=== PATIENT | male | born 1975 | race Caucasian/White ===

== ENCOUNTER 2024-11-08 09:54 | Outpatient (REF) | payer MEDICAID, SELFPAY ==
--- OUTSIDE RECORDS SUMMARY | 2024-11-08 11:38 | XMS_ITS | Encounter Summary ---
Author Organization [employer] Address [address] [facility] 7t [place] [address] Care Team Providers Care Licensed Marriage And Family Therapist Name Role Phone Jose Angel Cross MD Primary Care Prov ider Reason for Visit * Reason Comments Pre-visit Planning SDOH negative, Tobac co screening negative. Encounter Details Date Type Department Care Team ([facility] st Contact Info) Description 11/01/2024 Patient Outreach [facility] [address], [place] [phone] Jose Angel Cross MD [address] [place], [place] [phone] Pre-visit Planning (SDOH negative, Tobacco screening negative.) Social History Tobacco Use Types Packs/Day Years Used Date Smoking Tobacco: Never Smokeless Tobacco: Never Alcohol Use Standard Drinks/Week Comments Yes 0 (1 standard drink = 0.6 oz pur e alcohol) beer 1-2 times a year Depression Answer Date Recorded Patient Health Questionnaire-9 Score 0 07/25/2024 Patient Health Questionnaire-9 Score 0 07/25/2024 Last PHQ-9: Questionnaire Data Not on file 1 Housing Stability Answer Date Recorded What is your housing situation today? I have madeline baer 07/25/[address] you li ve. Do you have problems with any of the following? None of the above 07/25/2024 Food Insecurity Answer Date Recorded Within the past 12 months, y ou worried that your food would run out before you got money to buy more: Never True 07/25/2024 Within the past 12 months,th e food you bought just didn't last and you didn't have enough money to get more: Never True Transportation Answer Date Recorded In the past 12 months, has l ack of transportation kept you from medical appts, meetings, work or from getting things needed for daily living? No 07/25/2024 Utilities Answer Date Recorded In the past 12 months, has t he electric, gas, oil or water company threatened to shut off services in your home? No 07/25/2024 Depression Answer Date Recorded Patient Health Questionnaire-2 Score 0 07/25/2024 Internet Access Answer Date Recorded Internet Access Q1 Yes 07/25/2024 Internet Access Q2 Not on file 07/25/2024 Sex and Gender Information Value Date Recorded Sex Assigned at Male 07/20/2024 10:34 AM EDT Legal Sex Male 2:39 PM EDT Gender Identity Male 07/25/2024 8:43 AM EDT Sexual Orientation Straight 07/25/2024 8: 43 AM EDT documented as of this encounter Progress Notes * Sharri Hensley - 11/01/2024 11:24 AM EST CC Sharri Santillan placed successful outbound call to patient for pre-visit planning. Patient name and confirmed. Patient confirms appt date and time, and has transportation arrangements. Biggest concern for appointment at this time is no concerns. Appropriate screenings completed in anticipation ofappointment. documented in this encounter Plan of Treatment Not on file documented as of this encounter Visit Diagnoses Not on filedocumented in this encounter Additional Health Concerns Assessment Noted Time PHQ-9 Depression Total Score: 0 07/25/20 9:41 AM EDT documented as of this encounter Care Teams Licensed Marriage And Family Therapist Relationship Specialty Start Date End Date Jose Angel Cross MD [address] [place] [phone] PCP - General Internal Medicine 07/25/24 documented as of this encounter
--- OUTSIDE RECORDS SUMMARY | 2024-11-08 11:38 | XMS_ITS | Encounter Summary ---
Author Organization [employer] Address [address] [facility] 7t [place] [address] Care Team Providers Care Manager Filter Name Role Phone Jose Angel Cross MD Primary Care Prov ider Encounter Details Date Type Department Care Team (Late st Contact Info) Description 07/27/2024 Orders Only [facility]S [address] [place], [place] [phone] Jose Angel Cross MD [address] [place] [address] Social History Tobacco Use Types Packs/Day Years [...] AM EDT documented as of this encounter Plan of Treatment Not on file documented as of this encounter Visit Diagnoses Not on filedocumented in this encounter Additional Health Concerns Assessment Noted Time PHQ-9 Depression Total Score: 0 07/25/20 9:41 AM EDT documented as of this encounter Care Teams Manager Filter Relationship Specialty Start Date End Date Jose Angel Cross MD [address] [place] [id number] PCP - General Internal Medicine 07/25/24 documented as of this encounter
--- OUTSIDE RECORDS SUMMARY | 2024-11-08 11:38 | XMS_ITS | Encounter Summary ---
Author Organization [employer] Address [address] [facility] 7 [place] [address] Care Team Providers Care Doughnut Fryer Name Role Phone Jose Angel Cross MD Primary Care Prov ider Reason for Visit * Reason Onset Date Comments new patient visit 07/20/2024 Encounter Details Date Type Department Care Team (Late st Contact Info) Description 07/20/2024 Telephone [facility] [address] [place] [address] Jose Angel Cross MD [address] [place], [place] [phone] new patient visit Social History Tobacco Use Types Packs/Day Years Used Date Smoking Tobacco: Never Assessed Sex and Gender Information Value Date Recorded Sex Assigned at Male 07/20/2024 10:34 AM EDT Legal Sex Male 2:39 PM EDT Gender Identity Male 07/25/2024 8:43 AM EDT Sexual Orientation Straight 07/25/2024 8: 43 AM EDT documented as of this encounter Miscellaneous Notes * Telephone Encounter - Jabier Serrano - 07/20/2024 10:37 AM EDT TC placed to patient for scheduling of new patient visit. Agreed to 07/[address] Wren Medical Conditions: Sleep apnea ( has a cpap machine ) Apptmnt reminder and release form sent via mail . documented in this encounter Plan of Treatment Not on file documented as of this encounter Visit Diagnoses Not on filedocumented in this encounter Care Teams Doughnut Fryer Relationship Specialty Start Date End Date Jose Angel Cross MD [address] [place], [place] [phone] PCP - General Internal Medicine 07/25/24 documented as of this encounter
--- OUTSIDE RECORDS SUMMARY | 2024-11-08 11:38 | XMS_ITS | Encounter Summary ---
Author Organization [employer] Address [address] [facility] 7t [place] [address] Care Team Providers Care Tub Tender Name Role Phone Jose Angel Cross MD Primary Care Prov ider Reason for Referral * Consultation (Routine) - Pending Review Specialty Diagnoses / Procedures Referred By Contace t Referred To Contact Gastroenterology Diagnoses Screening for colon cancer Jose Angel Cross MD [address] [place] [address] Phone: tel: fax: Referral ID Status Reason Start Date Expiration Date Visits Requested Visits Authorized [id number] Pending Review Specialty Services Required 11/08/2024 11/08/2025 1 1 Encounter Details Date Type Department Care Team (Late st Contact Info) Description 11/08/2024 9:15 AM EST Office Visit [facility] [address] [place] [address] Jose Angel Cross MD [address] [place] [address] Class 3 severe obesity due to excess calories with serious comorbidity and body mass index (BMI) of 40.0 to 44.9 in adult (CMS/HCC) (Primary Dx); Dietary counseling; Exercise counseling; ALPHONSE (obstructive sleep apnea); Intrinsic eczema; Screening for colon cancer; Flu vaccine refused Social History Tobacco Use Types Packs/Day Years [...] AM EDT documented as of this encounter Last Filed Vital Signs Vital Sign Reading Time Taken Comments Blood Pressure 132/84 11/08/2024 9:31 AM EST Pulse 92 11/08/2024 9:31 AM EST Temperature 36.6 ??C (97.8 ??F) 11/08/2024 9:31 AM ES T Respiratory Rate 20 11/08/2024 9:31 AM EST Oxygen Saturation - - Inhaled Oxygen Concentration - - Weight 127 kg (279 lb) 11/08/2024 9:31 AM EST Height 172.7 cm (5' 8 ) 11/08/2024 9:31 AM EST Body Mass Index 42.42 11/08/2024 9:31 AM EST documented in this encounter Progress Notes * Jose Angel Baker MD - 11/08/2024 9:15 AM EST Subjective Patient ID: Nikolas Willett is a 49 y.o. male who presents for No chief complaint on file.. HPI Patient was seen in office for a physical examination Review of Systems Constitutional: Negative for chills, fatigue and fever. Respiratory: Negative for cough and shortness of breath. Cardiovascular: Negative for chest pain and palpitations. Gastrointestinal: Negative for abdominal distention, anal bleeding, blood in stool and constipation. Genitourinary: Negative for dysuria, frequency, penile discharge and penile pain. Musculoskeletal: Positive for arthralgias. Negative for joint swelling and myalgias. Objective Physical Exam Constitutional: Appearance: Normal appearance. HENT: Right Ear: Tympanic membrane, ear canal and external ear normal. There is no impacted cerumen. Left Ear: Tympanic membrane, ear canal and external ear normal. There is no impacted cerumen. Cardiovascular: Rate and Rhythm: Normal rate and regular rhythm. Heart sounds: No murmur heard. Pulmonary: Effort: Pulmonary effort is normal. No respiratory distress. Breath sounds: No stridor. No wheezing or rhonchi. Abdominal: General: Abdomen is flat. There is no distension. Palpations: There is no mass. Tenderness: There is no abdominal tenderness. There is no guarding or rebound. Hernia: No hernia is present. Musculoskeletal: General: No swelling or tenderness. Normal range of motion. Cervical back: Normal range of motion. No rigidity or tenderness. Lymphadenopathy: Cervical: No cervical adenopathy. Skin: General: Skin is warm. Coloration: Skin is not jaundiced or pale. Neurological: General: No focal deficit present. Mental Status: He is alert and oriented to person, place, and time. Psychiatric: Mood and Affect: Mood normal. Behavior: Behavior normal. Assessment/Plan Problem List Items Addressed This Visit ALPHONSE (obstructive sleep apnea) Patient with sleep apnea machine, needs adjustment will contact dealer for adjustment Class 3 severe obesity due to excess calories with serious comorbidity and body mass index (BMI) of40.0 to 44.9 in adult ([facility]) - Primary Encouraged to exercise 15 min every other day, eat smaller meal with calorie intake from 1500 to 2000 calorie daily, octaviano discuss if he is interested in medical treatment aid for weight loss Relevant Orders CBC auto differential Comprehensive Metabolic Panel Lipid Panel, Standard TSH W/Reflex to FT4 HIV-1/2 Antigen and Antibodies, Fourth Generation, with Reflexes Hepatitis C Antibody with Reflex to HCV, RNA, Quantitative, Real-Time PCR Hemoglobin A1c Intrinsic eczema Will provide triamcinolone Screening for colon cancer Will refer for screening colonoscopy Relevant Orders Referral to Gastroenterology Other Visit Diagnoses Dietary counseling Exercise counseling Flu vaccine refused documented in this encounter Miscellaneous Notes * Assessment & Plan Note - Jose Angel Baker MD - 11/08/2024 9:54 AM ESTAssociated Problem(s): Screening for colon cancer Will refer for screening colonoscopy * Assessment & Plan Note - Jose Angel Baker MD - 11/08/2024 9:53 AM ESTAssociated Problem(s): Intrinsic eczema Will provide triamcinolone * Assessment & Plan Note - Jose Angel Baker MD - 11/08/2024 9:53 AM ESTAssociated Problem(s): Class 3 severe obesity due to excess calories with serious comorbidity and body mass index (BMI) of 40.0 to 44.9 in adult (CMS/HCC) Encouraged to exercise 15 min every other day, eat smaller meal with calorie intake from 1500 to 2000 calorie daily, octaviano discuss if he is interested in medical treatment aid for weight loss * Assessment & Plan Note - Jose Angel Baker MD - 11/08/2024 9:51 AM ESTAssociated Problem(s): ALPHONSE (obstructive sleep apnea) Patient with sleep apnea machine, needs adjustment will contact dealer for adjustment documented in this encounter Plan of Treatment Scheduled Orders Name Type Priority Associated Diagnoses Orde r Schedule CBC auto differential Lab Routine Class 3 severe obesity due to excess calories with serious comorbidity and body mass index (BMI) of 40.0 to 44.9 in adult ([facility]) Expected: 11/08/2024 (Approximate), Expires: 11/08/2025 Comprehensive Metabolic Panel Lab Routine Class 3 severe obesity due to excess calories with serious comorbidity and body mass index (BMI) of 40.0 to 44.9 in adult ([facility]) Expected: 11/08/2024 (Approximate), Expires: 11/08/2025 Lipid Panel, Standard Lab Routine Class 3 severe obesity due to excess calories with serious comorbidity and body mass index (BMI) of 40.0 to 44.9 in adult ([facility]) Expected: 11/08/2024 (Approximate), Expires: 11/08/2025 TSH W/Reflex to FT4 Lab Routine Class 3 severe obesity due to excess calories with serious comorbidity and body mass index (BMI) of 40.0 to 44.9 in adult ([facility]) Expected: 11/08/2024 (Approximate), Expires: 11/08/2025 HIV-1/2 Antigen and Antibodies, Fourth Generation, with Reflexes Lab Routine Class 3 severe obesity due to excess calories with serious comorbidity and body mass index (BMI) of 40.0 to 44.9 in adult ([facility]) Expected: 11/08/2024 (Approximate), Expires: 11/08/2025 Hepatitis C Antibody with Reflex to HCV, RNA, Quantitative, Real-Time PCR Lab Routine Class 3 severe obesity due to excess calories with serious comorbidity and body mass index (BMI) of 40.0 to 44.9 in adult ([facility]) Expected: 11/08/2024, Expires: 11/08/2025 Hemoglobin A1c Lab Routine Class 3 severe obesity due to excess calories with serious comorbidity and body mass index (BMI) of 40.0 to 44.9 in adult ([facility]) Expected: 11/08/2024 (Approximate), Expires: 11/08/2025 Scheduled Referrals Name Type Priority Associated Diagnoses Order Schedule Referral to Gastroenterology Outpatient Referral Routine Screening for colon cancer Expected: 11/08/2024 (Approximate), Expires: 11/08/2025 documented as of this encounter Visit Diagnoses Diagnosis Class 3 severe obesity due to excess calories with serious comorbidity and body mass index (BMI) of 40.0 to 44.9 in adult ([facility])- Primary Dietary counseling Dietary surveillance and counseling Exercise counseling ALPHONSE (obstructive sleep apnea) Obstructive sleep apnea (adult) (pediatric) Intrinsic eczema Screening for colon cancer Special screening for malignant neoplasms, colon Flu vaccine refused documented in this encounter Additional Health Concerns Assessment Noted Time PHQ-9 Depression Total Score: 0 07/25/20 9:41 AM EDT documented as of this encounter Care Teams Tub Tender Relationship Specialty Start Date End Date Jose Angel Cross MD [address] [place] [id number] PCP - General Internal Medicine 07/25/24 documented as of this encounter
--- OUTSIDE RECORDS SUMMARY | 2024-11-08 11:38 | XMS_ITS | Encounter Summary ---
Author Organization [employer] Address [address] [facility] 7t [place] [address] Care Team Providers Care Proposal Rep Name Role Phone Jose Angel Cross MD Primary Care Prov ider Reason for Visit * Reason Onset Date Comments Chart Prep 11/07/2024 Encounter Details Date Type Department Care Team ([facility] st Contact Info) Description 11/07/2024 Telephone [facility] [address] [place] [address] Jose Angel Cross MD [address] [place] [address] Chart Prep Social History Tobacco Use Types Packs/Day Years [...] encounter Miscellaneous Notes * Telephone Encounter - Leisa Connolly [place] - 11/07/2024 3:56 PM EST Chart Prep Labs: not applicable Images: not applicable Vaccines due: yes Referrals: n/a Screenings: colonoscopy , STI screening Overdue care gaps: disability screening documented in this encounter Plan of Treatment Not on file documented as of this encounter Visit Diagnoses Not on filedocumented in this encounter Additional Health Concerns Assessment Noted Time PHQ-9 Depression Total Score: 0 07/25/20 9:41 AM EDT documented as of this encounter Care Teams Proposal Rep Relationship Specialty Start Date End Date Jose Angel Cross MD [address] [place] [phone] PCP - General Internal Medicine 07/25/24 documented as of this encounter
--- OUTSIDE RECORDS SUMMARY | 2024-11-08 11:38 | XMS_ITS | Encounter Summary ---
Author Organization [employer] Address [address] [facility] [address] 7[address] [place] [address] Care Team Providers Care Bale Coverer Name Role Phone Jose Angel Cross MD Primary Care Prov ider Encounter Details Date Type Department Care Team (Latest Contact Info) Description 11/08/2024 Travel Social History Tobacco Use Types Packs/Day Years [...] documented as of this encounter Care Teams Bale Coverer Relationship Specialty Start Date End Date Jose Angel Cross MD [address] [place] [id number] PCP - General Internal Medicine 07/25/24 documented as of this encounter
--- OUTSIDE RECORDS SUMMARY | 2024-11-08 11:38 | XMS_ITS | Clinical Summary ---
Author Organization [facility] Address [address] [place] [address] Care Team Providers Care Staff Weapons Officer Name Role Phone Beverly Tyson PA-C Primary Care Provider [phone] Source Comments PLEASE NOTE, if this patient is a minor, it may be UNLAWFUL to discuss sensitive information that is contained in these records (such as FAMILY PLANNING, MENTAL HEALTH or SUBSTANCE ABUSE) with the minor patient's parent or other person without the patient's specific authorization.[facility] Allergies No known active allergies Medications sodium chloride (SEA SOFT NASAL MIST) 0.65 % nasal sprayIndications :Congestion of nasal sinus Place 1 Lyons into the nostril(s) as needed for congestion. 60 mL 0 01/30/2016 Active Active Problems Problem Noted Date Diagnosed Date Encounter for vasectomy counseling 05/24/2015 Overview (02/06/2016): Images from the original note were not included. Had this 09/13/[address] Dugan He did and i requested for notes to be faxed. ? Previous Messages ?? ----- Message ----- ? From: AKIRA Reynolds ? Sent: 01/27/2016 ?? 5:19 PM ? To: William Bruce uro ref to vasectomy 07/19 did he have this done? Ref to uro BMI 40.0-44.9, adult ([facility]) 05/24/2015 Overview (05/24/2015): Ref yo connell, Lab Results Component Value Date TRIGLYC 92 05/07/2015 CHOL 151 05/07/2015 HDL 36* 05/07/2015 LDL 97 05/07/2015 Kidney stone Overview (05/01/2015): has #3; he passes the stones. last occurred, one month ago Lumbago Overview (01/30/2016): onset x many yr. No trauma. heavy lifting in past with work Immunizations Name Administration Dates Next Due Hep B, Adult/Adol (ENERGIX/RECOMBIVAX) 6,06/24/2015,05/24/2015 PPD 12/02/2015 TDAP 06/24/2015 Family History Medical History Relation Name Comments Heart Problems Father tob/[place] 57 Hypertension Father tob/[place] 57 Kidney disease Father tob/[place] 57 aug 2015 - kidney failure Stroke Father tob/[place] 57 Alcohol/Drug Abuse Maternal Grandfather tobacco hvy Kidney disease Maternal Grandfather tobacco hvy Stroke Maternal Grandmother Hypertension Mother thyroid Relation Name Status Comments Brother well. has #2 Alive Father tob/[place] 57 Maternal Grandfather tobacco hvy Maternal Grandmother Mother thyroid Alive Paternal Grandfather pulmonary isue and some Paternal Grandmother hvy tob- lung issue Sister none Alive Social History Tobacco Use Types Packs/Day Years Used Date Smoking Tobacco: Never Smokeless Tobacco: Never Alcohol Use Standard Drinks/Week Comments Yes 0 (1 standard drink = 0.6 oz pur e alcohol) one -2 beers monthly Social Connections Answer Date Recorded Social Connections and Isolation 0 05/15/2019 Financial Resource Strain Answer Date R ecorded Financial Resource Strain 0 2018 Stress Answer Date Recorded Stress 0 05/15/2019 Physical Activity Answer Date Recorded Physical Activity 0 05/15/2019 Food Insecurity Answer Date Recorded Food 0 05/15/2019 Transportation Needs Answer Date Record ed Transportation 0 05/15/2019 Housing Stability Answer Date Recorded Housing 0 05/15/2019 Safety and Environment Answer Date Kaushal rded Safety 0 05/15/2019 Utilities Answer Date Recorded Utilities 0 05/15/2019 Employment Answer Date Recorded Employment 0 05/15/2019 Sex and Gender Information Value Date Recorded Sex Assigned at Not on file Legal Sex Male 11:55 AM PDT Gender Identity Not on file Sexual Orientation Not on file 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 Not on file Not on file Last Filed Vital Signs Vital Sign Reading Time Taken Comments Blood Pressure 120/78 01/30/2016 2:45 PM EDT Pulse 72 01/30/2016 2:45 PM EDT Temperature 36.7 ??C (98.1 ??F) 01/30/2016 2:45 PM ED T Respiratory Rate 16 01/30/2016 2:45 PM EDT Oxygen Saturation - - Inhaled Oxygen Concentration - - Weight 124.3 kg (274 lb) 01/30/2016 2:45 PM EDT Height 172.7 cm (5' 8 ) 05/24/2015 11:16 AM EDT Body Mass Index 41.66 05/24/2015 11:16 AM EDT Plan of Treatment Not on file Insurance [employer] Care Teams Staff Weapons Officer Relationship Specialty Start Date End Date Beverly Tyson PA-C [address] [place] [address] PCP - General 11/22/18
--- OUTSIDE RECORDS SUMMARY | 2024-11-08 11:38 | XMS_ITS | Clinical Summary ---
Author Organization [employer] Address [address] [place] [address] Care Team Providers Care Mixing Place Supervisor Name Role Phone Jose Angel Cross MD Primary Care Prov ider Allergies No known active allergies Medications triamcinolone (Kenalog) 0.1 % cream Apply topically if needed in the morning and at bedtime (pain and swelling). 30 g 5 Active Active Problems Problem Noted Date Diagnosed Date Class 3 severe obesity due t o excess calories with serious comorbidity and body mass index (BMI) of 40.0 to 44.9 in adult 11/08/2024 Assessment & Plan (11/08/2024 9:53 AM EST): Encouraged to exercise 15 min every other day, eat smaller meal with calorie intake from 1500 to 2000 calorie daily, octaviano discuss if he is interested in medical treatment aid for weight loss Intrinsic eczema 11/08/2024 Assessment & Plan (11/08/2024 9:53 AM EST): Will provide triamcinolone Screening for colon cancer 11/08/2024 Assessment & Plan (11/08/2024 9:54 AM EST): Will refer for screening colonoscopy Encounter for medical examination to establish c are 07/25/2024 Assessment & Plan (07/25/2024 12:17 PM EDT): Not seen by a pcp in over 6 months No hx of hospitalization No recent er visit Pmhx back pain/alphonse Pshx- All:- Meds: ibuprofen PRN ALPHONSE (obstructive sleep apnea) 07/25/2024 Assessment & Plan (11/08/2024 9:51 AM EST): Patient with sleep apnea machine, needs adjustment will contact dealer for adjustment Assessment & Plan (07/25/2024 12:18 PM EDT): Patient has sleep apnea, on cpap machine, follow up PRN Chronic bilateral low back pain without sciatica 07/25/2024 Assessment & Plan (07/25/2024 12:19 PM EDT): On ibuprofen as needed, avoid heavy lifting, rest when injured and apply cold pads as needed Encounters Date Type Department Care Team Description 11/08/2024 9:15 AM EST Office Visit [facility] [address] [place] [address] Jose Angel Cross MD Class 3 severe obesity due to excess calories with serious comorbidity and body mass index (BMI) of 40.0 to 44.9 in adult ([facility]) (Primary Dx); Dietary counseling; Exercise counseling; ALPHONSE (obstructive sleep apnea); Intrinsic eczema; Screening for colon cancer; Flu vaccine refused 11/08/2024 Travel 11/07/2024 Telephone [facility] [address] [place] [address] Jose Angel Cross MD Chart Prep 11/01/2024 Patient Outreach [facility] [address] [place] [address] Jose Angel Cross MD Pre-visit Planning (SDOH negative, Tobacco screening negative.) from Last 3 Months Immunizations Name Administration Dates Next Due Hep B, adult 11/25/2015,06/24/2015,05/24/2015 PPD Test 12/02/2015 Tdap 06/24/2015 Family History Medical History Relation Name Comments Sleep apnea Father No Known Problems Mother Cancer Neg Hx Relation Name Status Comments Father Mother Social History Tobacco Use Types Packs/Day Years Used Date Smoking Tobacco: Never Smokeless Tobacco: Never Tobacco Cessation:Counseling Given: Not Answered Alcohol Use Standard Drinks/Week Comments Yes 0 [...] Orientation Straight 07/25/2024 8: 43 AM EDT Last Filed Vital Signs Vital Sign Reading [...] Mass Index 42.42 11/08/2024 9:31 AM EST Plan of Treatment Health Maintenance Due Date Last Done Comments CT Colonography 1977 Colonoscopy 1977 Colorectal Cancer Screening 1977 FIT DNA/Cologuard 1977 FIT 1977 FOBT 1977 HIV Screening 1977 Lipid Panel 1977 Sigmoidoscopy 1977 Family Planning (PISQ) 02/27/1992 Hepatitis C Screening 1995 COVID-19 Vaccine (3 - 2023-2 5 season) 2024 12/23/2020, 11/25/2020 Influenza Vaccine (#1) 2024 DTaP/Tdap/Td Vaccines (2 - T d or Tdap) 06/24/2025 06/24/2015 Alcohol/Substance Use Screening 07/25/2025 07/25/2024 Depression Screening 07/25/2025 07/25/2024, 07/25/2024 Tobacco Screening 07/25/2025 07/25/2024 SDOH Screening 11/01/2025 11/01/2024 Zoster Vaccines (1 of 2) 2027 RSV Patients and Patients Aged 60 years or older (1 - 1-dose 75+ series) 02/27/2052 Hepatitis B Vaccines Completed 11/25/2015, 06/24/2015, 05/24/2015 HIB Vaccines Aged Out No longer eligi ble based on patient's age to complete this topic HPV Vaccines Aged Out No longer eligi ble based on patient's age to complete this topic Hepatitis A Vaccines Aged Out No long er eligible based on patient's age to complete this topic IPV Vaccines Aged Out No longer eligi ble based on patient's age to complete this topic Meningococcal Vaccine Aged Out No tonio mary eligible based on patient's age to complete this topic Pneumococcal Vaccine: Pediatrics (0 to 5 Years) and At-Risk Patients (6 to 49) Years) Aged Out No longer eligible b ased on patient's age to complete this topic RSV under 20 months Aged Out No longe r eligible based on patient's age to complete this topic Rotavirus Vaccines Aged Out No longer eligible based on patient's age to complete this topic Insurance [facility] C[address] Care Teams Mixing Place Supervisor Relationship Specialty Start Date End Date Jose Angel Cross MD [address] [place] [id number] PCP - General Internal Medicine 07/25/24
[2024-11-09 14:22] LABS: MANUAL DIFF FLAG NO
[2024-11-09 14:28] LABS: Basophils Absolute Auto 0.1 X10*3/uL (0.0-0.2); Basophils Percent Auto 1.1 % (0-2); Eosinophils Absolute Auto 0.2 X10*3/uL (0.0-0.4); Eosinophils Percent Auto 3.4 % (0-4); Hematocrit 44.1 % (42.0-52.0); Hemoglobin 14.4 g/dl (14.0-18.0); Imm Gran Abs Auto 0.02 X10*3/uL (0.00-0.03); Imm Gran Pct Auto 0.4 % (0.0-0.4); Lymphocytes Absolute Auto 1.2 X10*3/uL (1.2-4.9); Mean Corpuscular HGB Conc 32.7 g/dl (31.0-36.0); Mean Corpuscular Hemoglobin 28.5 pg (27.0-33.0); Mean Corpuscular Volume 87.2 fL (80.0-98.0); Mean Platelet Volume 11.5 fL (9.4-12.4); Monocytes Absolute Auto 0.5 X10*3/uL (0.1-1.2); Monocytes Percent Auto 9.8 % (2-11); Neutrophils Absolute Auto 2.8 x10*3/uL (2.0-8.3); Neutrophils Percent Auto 59.3 % (45-73); Platelet Count 169 X10*3/uL (160-400); Red Blood Count 5.06 X10*6/uL (4.60-5.80); White Blood Count 4.7 X10*3/uL (4.8-10.8)
[2024-11-09 14:42] LABS: Estimated Average Glucose 108 mg/dL; Hemoglobin A1C 131.6045 umol/L; Hemoglobin A1c % 5.4 % (<6.0); Total Hemoglobin (HGBA1C) 3745.4671 umol/L
[2024-11-09 14:45] LABS: Alanine Aminotransferase 42 U/L (0-40); Albumin Level 4.2 g/dL (3.5-5.0); Alkaline Phosphatase 108 U/L (39-117); Anion Gap 11 (12-20); Aspartate Amino Transferase 31 U/L (5-37); Bilirubin Total 0.3 mg/dL (0.0-1.0); Blood Urea Nitrogen 19 mg/dL (9-16); Calcium 9.2 mg/dL (8.4-10.2); Carbon Dioxide 28 mmol/L (22-29); Chloride 108 mmol/L (96-108); Cholesterol 167 mg/dL (<200); Estimated Glomerular Filt Rate > 60; Glucose Random 107 mg/dL (60-115); HDL Cholesterol 34 mg/dL (>40); LDL Cholesterol Calculated 108 mg/dL (<100); Potassium 4.5 mmol/L (3.3-5.1); Sodium 142 mmol/L (135-145); Total Protein 7.5 g/dL (6.5-8.0); Triglycerides 127 mg/dL (<150)
[2024-11-09 15:03] LABS: TSH reflex Free T4 3.38 uIU/mL (0.32-4.0)
[2024-11-10 08:01] LABS: HIV AB/AG Nonreactive (Nonreactive); HIV Num 1 0.07 S/CO (0.00-0.99); ~HepC Num1 0.08 S/CO (0.00-0.79); ~Hepatitis C Antibody Nonreactive (Nonreactive)
== END 2024-11-08 09:55 | disposition home or self-care (01) ==
LOC: HO.CHCLDS 09:54
PROVIDERS: Visit Provider Internal Medicine
DX: E66.813 Obesity, class 3 (principal); E66.01 Morbid (severe) obesity due to excess calories; Z68.41 Body mass index [BMI] 40.0-44.9, adult
CPT/HCPCS: 36415; 80053; 80061; 83036; 84443; 85025; 86803; 87389